=== PATIENT | male | born 1945 | race Caucasian/White ===

== ENCOUNTER 2020-03-31 08:23 | Outpatient (CLI) | payer MEDICARE, OTHER | END 2020-03-31 08:24 | disposition short-term general hospital (02) | LOC: EMS 08:23 | PROVIDERS: ATTEND Surgery | DX: S39.92XA Unspecified injury of lower back, initial encounter (principal); W18.30XA Fall on same level, unspecified, initial encounter; R39.89 Other symptoms and signs involving the genitourinary system | CPT/HCPCS: A0425; A0429 ==

== ENCOUNTER 2020-07-14 10:39 | Outpatient (CLI) | payer MEDICARE, OTHER | END 2020-07-14 10:40 | disposition short-term general hospital (02) | LOC: EMS 10:39 | PROVIDERS: ATTEND Surgery | DX: R41.82 Altered mental status, unspecified (principal) | CPT/HCPCS: A0425; A0429 ==